=== PATIENT | female | born 1995 | race Asian ===

== ENCOUNTER 2022-08-22 19:14 | Day surgery (SDC) | payer SELFPAY ==
[2022-08-22 19:40] VITALS: BMI 26.2
[2022-08-22] MEDS ORDERED: hydrALAZINE 20 MG/ML VIAL SLOW IVP PRN (20:48)
== END 2022-08-22 22:05 | disposition home or self-care (01) ==
LOC: CSHLD/OP 19:14
PROVIDERS: ATTEND Obstetrics & Gynecology
DX: O47.1 False labor at or after 37 completed weeks of gestation (principal); O24.419 Gestational diabetes mellitus in pregnancy, unspecified control; Z3A.40 40 weeks gestation of pregnancy
CPT/HCPCS: 99283

== ENCOUNTER 2022-08-25 19:00 | Inpatient (IN) | payer MEDICAID, OTHER ==
[2022-08-25] MEDS ORDERED: hydrALAZINE 20 MG/ML VIAL SLOW IVP PRN (22:16)
[2022-08-25] MEDS ORDERED: Lidocaine 1% (PF) 30 ML VIAL SC PRN (22:16)
[2022-08-25] MEDS ORDERED: HYDROcodone/Acetaminophen 5/325 mg Tablet PO PRN ×2 (22:16)
[2022-08-25] MEDS ORDERED: Ondansetron PF 4 MG/2 ML Vial IVP PRN (22:16)
[2022-08-25] MEDS ORDERED: Misoprostol 100 MCG TAB VAG SCH (22:16)
[2022-08-25] MEDS ORDERED: Butorphanol Tartrate 1 MG/ML VIAL SLOW IVP PRN (22:16)
[2022-08-25] MEDS ORDERED: Promethazine HCl 25 MG/ML VIAL IM PRN (22:16)
[2022-08-25] MEDS ORDERED: Ibuprofen 800 MG TAB PO PRN (22:16)
[2022-08-25 22:17] VITALS: BMI 26.2
[2022-08-25] MEDS ORDERED: NS w/ Oxytocin 30 units 500 ML IV SCH ×2 (22:30)
[2022-08-25 23:29] LABS: Hemoglobin 13.5 g/dL (12.0-15.5); Mean Corpuscular HGB CONC 34.8 g/dL (32.0-36.0); Mean Corpuscular Hemoglobin 33.2 pg (27.0-33.0); Mean Corpuscular Volume 95.3 fl (81.6-98.3); Mean Platelet Volume 11.7 fl (7.4-10.4); Platelet Count 131 10x3/uL (150-450); Red Blood Cell (RBC) Count 4.07 10x6/uL (3.90-5.03); White Blood Cell (WBC) Count 7.6 10x3/uL (3.5-10.5)
[2022-08-26 00:01] LABS: SARS-CoV-2 NAA Rapid Test Not Detected (NotDetected)
[2022-08-26 00:07] LABS: HBSAg Index 0.12 S/CO (0-0.99); Hep B Surf Ag Non-Reactive S/CO (NonReactive); Syphilis Antibody Nonreactive (Nonreactive); Syphilis Antibody Index 0.02 S/CO (<1.00 Non-Reactive)
[2022-08-26] MEDS: Misoprostol 100 MCG TAB VAG SCH ×3 (05:30→05:34)
[2022-08-26] MEDS: Lactated Ringer's 1,000 ML IV SCH (10:14)
[2022-08-26] MEDS ORDERED: Fentanyl 2 mcg/Bup 0.1% Cadd 100 ML ONE (10:50)
[2022-08-26] MEDS: Fentanyl 2 mcg/Bupivacaine 0.1% Cassette 100 ML EPIDURAL SCH ×2 (11:11→19:28)
[2022-08-26] MEDS ORDERED: ePHEDrine Sulfate 50 MG/10 ML VIAL SLOW IVP PRN (11:20)
[2022-08-26] MEDS ORDERED: diphenhydrAMINE 50 MG/ML VIAL IVP PRN (11:20)
[2022-08-26] MEDS ORDERED: Promethazine HCl 25 MG/ML VIAL IM PRN (11:20)
[2022-08-26] MEDS ORDERED: Moisturizing Cream (Eucerin) 113 GM JAR TOP PRN (11:20)
[2022-08-26] MEDS ORDERED: Naloxone HCl 0.4 mg/ml Vial IVP PRN ×2 (11:20)
[2022-08-26] MEDS ORDERED: Lactated Ringer's 500 ML IV PRN (11:20)
[2022-08-26] MEDS ORDERED: Ondansetron PF 4 MG/2 ML Vial IVP PRN (11:20)
[2022-08-26] MEDS ORDERED: Acetaminophen 325 MG TAB PO PRN (11:20)
[2022-08-26] MEDS ORDERED: Communication Order-Pharmacy FS SCH (11:30)
[2022-08-27] MEDS: Fentanyl 2 mcg/Bupivacaine 0.1% Cassette 100 ML EPIDURAL SCH (03:03)
[2022-08-27] MEDS ORDERED: Moisturizing Cream (Eucerin) 113 GM JAR TOP PRN (04:24)
[2022-08-27] MEDS ORDERED: Ketorolac Tromethamine 30 MG/ML VIAL IVP PRN ×2 (04:24→09:49)
[2022-08-27] MEDS ORDERED: Promethazine HCl 25 MG/ML VIAL IM PRN ×2 (04:24→09:49)
[2022-08-27] MEDS ORDERED: Fentanyl 100 MCG/2 ML VIAL SLOW IVP PRN (04:24)
[2022-08-27] MEDS ORDERED: Naloxone HCl 0.4 mg/ml Vial IVP PRN ×2 (04:24)
[2022-08-27] MEDS ORDERED: Promethazine HCl 25 MG SUPP PR PRN (04:24)
[2022-08-27] MEDS ORDERED: Meperidine HCl/PF 25 MG/ML VIAL SLOW IVP PRN (04:24)
[2022-08-27] MEDS ORDERED: Naloxone HCl 0.4 mg/ml Vial IV PRN (04:24)
[2022-08-27] MEDS ORDERED: Ondansetron PF 4 MG/2 ML Vial IVP PRN ×3 (04:24→09:48)
[2022-08-27] MEDS ORDERED: Ondansetron HCl/PF 4 MG/2 ML Vial IVP PRN (04:24)
[2022-08-27] MEDS ORDERED: diphenhydrAMINE 50 MG/ML VIAL IVP PRN (04:24)
[2022-08-27] MEDS ORDERED: CEFAZOLIN 2 GM VIAL ONE (04:25)
[2022-08-27] MEDS ORDERED: Azithromycin 500 MG VIAL ONE (04:25)
[2022-08-27] MEDS ORDERED: Ketorolac Tromethamine 30 MG/ML VIAL IVP SCH (04:30)
[2022-08-27] MEDS ORDERED: Communication Order-Pharmacy FS SCH (04:30)
[2022-08-27] MEDS ORDERED: Bicitra 30 ML UDCUP PO PRN (04:34)
[2022-08-27] MEDS ORDERED: Famotidine/PF 20 mg/2ml Vial SLOW IVP PRN (04:34)
[2022-08-27] MEDS ORDERED: Methylergonovine 0.2 MG/ML VIAL ONE (04:41)
[2022-08-27] MEDS ORDERED: Carboprost 250 MCG/ML AMP ONE (04:42)
[2022-08-27] MEDS ORDERED: Misoprostol 200 MCG TAB ONE (04:42)
[2022-08-27] MEDS ORDERED: CEFAZOLIN 2 GM in Sodium Chloride 0.9% 100 ML IVPB SCH (04:45)
[2022-08-27] MEDS ORDERED: Azithromycin 500 MG in Sodium Chloride 0.9% 250 ML 250 ML IVPB SCH (04:45)
[2022-08-27] MEDS ORDERED: Oxytocin 10 UNITS/ML VIAL ONE (04:49)
[2022-08-27] MEDS ORDERED: Ondansetron PF 4 MG/2 ML Vial ONE (04:49)
[2022-08-27] MEDS ORDERED: Morphine PF 10 MG/10 ML VIAL ONE (04:49)
[2022-08-27] MEDS ORDERED: Ketorolac Tromethamine 30 MG/ML VIAL ONE (04:49)
[2022-08-27] MEDS ORDERED: Dexamethasone 4 mg/ml Vial ONE (04:49)
[2022-08-27] MEDS ORDERED: PHENYLEPHRINE-NS 100 MCG/ML 10 ML SYRINGE ONE (04:49)
[2022-08-27] MEDS ORDERED: ePHEDrine Sulfate 50 MG/10 ML VIAL ONE (04:49)
[2022-08-27] MEDS ORDERED: Lidocaine 2% MPF 10 ML AMP (For Epidural Use) ONE ×2 (04:50→10:00)
[2022-08-27] MEDS ORDERED: Fentanyl 100 MCG/2 ML VIAL ONE (05:14)
[2022-08-27] MEDS ORDERED: Midazolam HCl 2 mg/2 ml Vial ONE (05:15)
[2022-08-27] MEDS ORDERED: Methylergonovine 0.2 MG/ML VIAL IM SCH (06:15)
[2022-08-27] MEDS ORDERED: Carboprost 250 MCG/ML AMP IM SCH (06:15)
[2022-08-27] MEDS ORDERED: diphenhydrAMINE 25 MG CAP PO PRN (09:15)
[2022-08-27] MEDS ORDERED: Lanolin Ointment 7 GM TUBE TOP PRN (09:15)
[2022-08-27] MEDS ORDERED: Acetaminophen 325 MG TAB PO PRN (09:15)
[2022-08-27] MEDS ORDERED: hydrALAZINE 20 MG/ML VIAL SLOW IVP PRN (09:15)
[2022-08-27] MEDS ORDERED: Boostrix 0.5 ML (Tdap) VIAL (>/=7 yrs of age) IM ONE (09:15)
[2022-08-27] MEDS ORDERED: Bisacodyl 10 MG SUPP PR PRN (09:15)
[2022-08-27] MEDS ORDERED: NS w/ Oxytocin 30 units 500 ML IV SCH (09:15)
[2022-08-27] MEDS ORDERED: Bupivacaine HCl 0.5%/Epinephrine 1:200,000/PF 30 ml Vial ONE (10:00)
[2022-08-27] MEDS ORDERED: Docusate 100 MG CAP PO SCH (10:00)
[2022-08-27] MEDS ORDERED: Prenatal Vitamin 1 TAB PO SCH (10:00)
[2022-08-27] MEDS ORDERED: Ferrous Sulfate 325 MG TAB PO SCH (10:00)
[2022-08-27] MEDS ORDERED: Ibuprofen 800 MG TAB PO SCH (11:00)
[2022-08-27] MEDS: Ibuprofen 800 MG TAB PO SCH ×2 (14:02→21:30)
[2022-08-27] MEDS: Lactated Ringer's 1,000 ML IV SCH ×2 (17:28→17:29)
[2022-08-27] MEDS: Misoprostol 100 MCG TAB VAG SCH ×2 (17:29→17:30)
[2022-08-27] MEDS: Ferrous Sulfate 325 MG TAB PO SCH (21:30)
[2022-08-27] MEDS: Docusate 100 MG CAP PO SCH (21:30)
[2022-08-28] MEDS: HYDROcodone/Acetaminophen 5/325 mg Tablet PO PRN ×5 (02:47→22:22)
[2022-08-28] MEDS: Simethicone Chewable 80 MG TAB PO PRN ×4 (02:47→22:21)
[2022-08-28] MEDS: Ibuprofen 800 MG TAB PO SCH ×3 (05:27→22:21)
[2022-08-28 06:30] LABS: Hemoglobin 10.4 g/dL (12.0-15.5); Mean Corpuscular HGB CONC 34.1 g/dL (32.0-36.0); Mean Corpuscular Hemoglobin 32.8 pg (27.0-33.0); Mean Corpuscular Volume 96.2 fl (81.6-98.3); Mean Platelet Volume 11.9 fl (7.4-10.4); Platelet Count 124 10x3/uL (150-450); RBC Distribution Width 14.4 % (11.5-14.5); Red Blood Cell (RBC) Count 3.17 10x6/uL (3.90-5.03); White Blood Cell (WBC) Count 15.9 10x3/uL (3.5-10.5)
[2022-08-28] MEDS: Docusate 100 MG CAP PO SCH ×2 (08:53→22:20)
[2022-08-28] MEDS: Prenatal Vitamin 1 TAB PO SCH (08:53)
[2022-08-28] MEDS: Ferrous Sulfate 325 MG TAB PO SCH ×2 (08:55→22:21)
[2022-08-29] MEDS: HYDROcodone/Acetaminophen 5/325 mg Tablet PO PRN ×3 (04:17→23:15)
[2022-08-29] MEDS: Ibuprofen 800 MG TAB PO SCH ×3 (06:06→21:43)
[2022-08-29] MEDS: Simethicone Chewable 80 MG TAB PO PRN ×3 (06:07→21:43)
[2022-08-29] MEDS: Prenatal Vitamin 1 TAB PO SCH (08:11)
[2022-08-29] MEDS: Docusate 100 MG CAP PO SCH ×2 (08:11→21:43)
[2022-08-29] MEDS: Ferrous Sulfate 325 MG TAB PO SCH ×2 (08:36→23:53)
[2022-08-30] MEDS: HYDROcodone/Acetaminophen 5/325 mg Tablet PO PRN ×4 (03:59→21:52)
[2022-08-30] MEDS: Ibuprofen 800 MG TAB PO SCH ×3 (05:32→21:51)
[2022-08-30] MEDS: Ferrous Sulfate 325 MG TAB PO SCH ×2 (07:24→21:51)
[2022-08-30] MEDS: Docusate 100 MG CAP PO SCH ×2 (09:55→21:50)
[2022-08-30] MEDS: Prenatal Vitamin 1 TAB PO SCH (09:55)
[2022-08-30] MEDS: Simethicone Chewable 80 MG TAB PO PRN ×2 (09:58→21:50)
[2022-08-31] MEDS: Simethicone Chewable 80 MG TAB PO PRN (03:26)
[2022-08-31] MEDS: HYDROcodone/Acetaminophen 5/325 mg Tablet PO PRN ×2 (03:27→08:08)
[2022-08-31] MEDS: Ibuprofen 800 MG TAB PO SCH (05:51)
[2022-08-31] MEDS: Docusate 100 MG CAP PO SCH (08:04)
[2022-08-31] MEDS: Prenatal Vitamin 1 TAB PO SCH (08:04)
[2022-08-31] MEDS: Ferrous Sulfate 325 MG TAB PO SCH (08:05)
[2022-08-31 09:39] VITALS: BP 123/80; TEMP 97.6
== END 2022-08-31 13:05 | disposition home or self-care (01) | DRG 787 ==
LOC: CSHLD 21:01 → CSHPP 08-27 09:00
PROVIDERS: ADMIT Obstetrics & Gynecology; ATTEND Obstetrics & Gynecology
PROC: 3E0P7VZ Introduction of Hormone into Female Reproductive, Via Natural or Artificial Opening (ICD-10-PCS; 2022-08-26)
PROC: 10907ZC Drainage of Amniotic Fluid, Therapeutic from Products of Conception, Via Natural or Artificial Opening (ICD-10-PCS; 2022-08-26)
PROC: 10H07YZ Insertion of Other Device into Products of Conception, Via Natural or Artificial Opening (ICD-10-PCS; 2022-08-26)
PROC: 10D00Z1 Extraction of Products of Conception, Low, Open Approach (ICD-10-PCS; principal; 2022-08-27)
DX: O24.420 Gestational diabetes mellitus in childbirth, diet controlled (principal); O63.9 Long labor, unspecified; Z20.822 Contact with and (suspected) exposure to COVID-19; Z3A.41 41 weeks gestation of pregnancy; Z37.0 Single live birth; O62.1 Secondary uterine inertia; O48.0 Post-term pregnancy; O61.0 Failed medical induction of labor; O62.2 Other uterine inertia
CPT/HCPCS: 36415; 51702; 85027; 86780; 86850; 86900; 86901; 87340; J1100; J1885; J2210; J2250; J2274; J2405; J2590; J3010; J3490; J7120; U0002

== ENCOUNTER 2024-07-14 11:09 | Outpatient (CLI) | payer MEDICAID | END 2024-07-14 11:10 | disposition home or self-care (01) | LOC: CSHLAB 11:09 | PROVIDERS: ATTEND Obstetrics & Gynecology | DX: Z01.812 Encounter for preprocedural laboratory examination (principal); O34.219 Maternal care for unspecified type scar from previous cesarean delivery | CPT/HCPCS: 85014; 85018; 85049; 86780; 86850; 86900; 86901; 87340 ==

== ENCOUNTER 2024-07-17 05:52 | Inpatient (IN) | payer MEDICAID, OTHER, SELFPAY ==
[2024-07-14 12:15] LABS: Hematocrit 36.1 % (34.9-44.5); Hemoglobin 12.3 g/dL (12.0-15.5); Platelet Count 113 10x3/uL (150-450)
[2024-07-14 12:42] LABS: Syphilis Antibody Nonreactive (Nonreactive); Syphilis Antibody Index 0.07 S/CO (<1.00 Non-Reactive)
[2024-07-14 13:18] LABS: HBsAg Index 0.25 S/CO (0-0.99); Hep B Surf Ag Non-Reactive S/CO (NonReactive)
[2024-07-17] MEDS ORDERED: Promethazine HCl 25 MG/ML VIAL IM PRN ×2 (06:23→08:38)
[2024-07-17] MEDS ORDERED: hydrALAZINE 20 MG/ML VIAL SLOW IVP PRN ×2 (06:23→10:48)
[2024-07-17] MEDS ORDERED: Ondansetron PF 4 MG/2 ML Vial IVP PRN ×3 (06:23→08:38)
[2024-07-17] MEDS ORDERED: Oxytocin 30 units/NS 500 ML 500 ML IV SCH (06:23)
[2024-07-17] MEDS ORDERED: fentaNYL 50 mcg/mL 1 mL Vial SLOW IVP PRN ×2 (06:23→08:38)
[2024-07-17 07:05] VITALS: BMI 26.4
[2024-07-17] MEDS: Famotidine/PF 20 mg/2ml Vial SLOW IVP PRN (07:22)
[2024-07-17] MEDS: Lactated Ringer's 1,000 ML IV SCH (07:22)
[2024-07-17] MEDS: CEFAZOLIN 2 GM in Sodium Chloride 0.9% 100 ML IVPB SCH (07:22)
[2024-07-17] MEDS ORDERED: Moisturizing Cream (Eucerin) 113 GM JAR TOP PRN (08:38)
[2024-07-17] MEDS ORDERED: diphenhydrAMINE 50 MG/ML VIAL IVP PRN (08:38)
[2024-07-17] MEDS ORDERED: Naloxone HCl 0.4 mg/ml Vial IV PRN (08:38)
[2024-07-17] MEDS ORDERED: Meperidine HCl/PF 25 MG (1 mL) VIAL SLOW IVP PRN (08:38)
[2024-07-17] MEDS ORDERED: Naloxone HCl 0.4 mg/ml Vial IVP PRN ×2 (08:38)
[2024-07-17] MEDS ORDERED: HYDROmorphone 0.5 MG/0.5 ML SYRINGE SLOW IVP PRN (08:38)
[2024-07-17] MEDS ORDERED: Communication Order-Pharmacy FS SCH (08:45)
[2024-07-17] MEDS: fentaNYL 50 mcg/mL 1 mL Vial ONE (10:32)
[2024-07-17] MEDS: Ketorolac Tromethamine 30 MG (1 mL) VIAL IVP SCH (10:32)
[2024-07-17] MEDS: Erythromycin Base 0.5% Oint 1 GM TUBE ONE (10:33)
[2024-07-17] MEDS: Ondansetron PF 4 MG/2 ML Vial ONE (10:33)
[2024-07-17] MEDS: Phytonadione Neonatal 1 MG/0.5 ML AMP ONE (10:33)
[2024-07-17] MEDS: Oxytocin 10 UNITS/ML VIAL ONE (10:33)
[2024-07-17] MEDS: Morphine PF 10 MG/10 ML VIAL ONE (10:33)
[2024-07-17] MEDS: PHENYLEPHRINE-NS 100 MCG/ML 10 ML SYRINGE ONE (10:33)
[2024-07-17] MEDS ORDERED: Bisacodyl 10 MG SUPP PR PRN (10:48)
[2024-07-17] MEDS ORDERED: Lanolin Ointment 7 GM TUBE TOP PRN (10:48)
[2024-07-17] MEDS ORDERED: diphenhydrAMINE 25 MG CAP PO PRN (10:48)
[2024-07-17] MEDS: Ferrous Sulfate 325 MG TAB PO SCH (11:50)
[2024-07-17] MEDS: Prenatal Vitamin 1 TAB PO SCH (11:50)
[2024-07-17] MEDS: Boostrix 0.5 ML (Tdap) VIAL (>/=7 yrs of age) IM ONE (11:50)
[2024-07-17] MEDS: Ondansetron PF 4 MG/2 ML Vial IVP PRN (15:07)
[2024-07-17] MEDS: Ketorolac Tromethamine 30 MG (1 mL) VIAL IVP PRN (16:42)
[2024-07-17] MEDS ORDERED: HYDROcodone/Acetaminophen 5/325 mg Tablet PO PRN (21:00)
[2024-07-18 04:40] LABS: Hemoglobin 10.8 g/dL (12.0-15.5); Mean Corpuscular HGB CONC 33.8 g/dL (32.0-36.0); Mean Corpuscular Hemoglobin 32.2 pg (27.0-33.0); Mean Corpuscular Volume 95.5 fL (81.6-98.3); Mean Platelet Volume 12.5 fL (7.4-10.4); Platelet Count 108 10x3/uL (150-450); RBC Distribution Width 13.3 % (11.5-14.5); Red Blood Cell (RBC) Count 3.35 10x6/uL (3.90-5.03); White Blood Cell (WBC) Count 9.8 10x3/uL (3.5-10.5)
[2024-07-18] MEDS: Ferrous Sulfate 325 MG TAB PO SCH (04:48)
[2024-07-18] MEDS: Prenatal Vitamin 1 TAB PO SCH (08:22)
[2024-07-18] MEDS: HYDROcodone/Acetaminophen 5/325 mg Tablet PO PRN (09:28)
[2024-07-18] MEDS: Simethicone Chewable 80 MG TAB PO PRN (09:29)
[2024-07-18] MEDS: Ibuprofen 800 MG TAB PO SCH (14:55)
[2024-07-18 20:05] VITALS: BP 100/66; TEMP 97.8
== END 2024-07-20 11:45 | disposition home or self-care (01) | DRG 788 ==
LOC: CSHLD 05:52 → CSHPP 10:45
PROVIDERS: ADMIT Obstetrics & Gynecology; ATTEND Obstetrics & Gynecology
PROC: 10D00Z1 Extraction of Products of Conception, Low, Open Approach (ICD-10-PCS; principal; 2024-07-17)
DX: O34.211 Maternal care for low transverse scar from previous cesarean delivery (principal); O24.429 Gestational diabetes mellitus in childbirth, unspecified control; Z3A.39 39 weeks gestation of pregnancy; Z37.0 Single live birth
CPT/HCPCS: 36415; 51702; 85014; 85018; 85027; 85049; 86780; 86850; 86900; 86901; 87340; J1885; J2274; J2405; J2590; J3010; J3490; J7120